=== PATIENT | male | born 1980 | race African-American/Black ===

== ENCOUNTER 2019-06-23 08:35 | Outpatient (CLI) | payer BC, OTHER ==
[~2019-06-23 08:35] MED LIST: EPINEPHrine 1 MG/ML AMP ONE; Gadobenate Dimeglumine 529 MG/1 ML (20ML VIAL) ONE; Iopamidol 300 61% 30 ML VIAL ONE; Lidocaine 1% PF 10 ML AMP ONE
--- NOTE | 2019-06-23 12:44 | MRI ---
MR ARTHROGRAM OF THE LEFT SHOULDER: INDICATION: History of left shoulder rotator cuff repair with left shoulder pain. COMPARISON: Prior MR of the left shoulder dated 01/04/2015. FINDINGS: Since the comparison examination there is been an interval rotator cuff repair. There is still a part ial-thickness undersurface tear involving the anterior infraspinatus at the footprint involving approximately 75% of the tendon thickness, best seen on image 14 of series 6. There is a full-thickne ss SLAP tear involving the posterior superior and posterior glenoid labrum. Glenohumeral articular surface is normal-appearing. Biceps tendon is located. Biceps anchor complex is intact. Hill-Sachs de formity is again noted. There is mild AC joint hypertrophy. IMPRESSION: 1. SLAP tear involving the posterior superior and posterior glenoid labrum extending from approximate ly the 10:00 position through the 9:00 position. 2. Partial thickness articular surface tear involving the anterior infraspinatus at the footprint inv olving approximately 75% of the tendon thickness. This tear is new from the comparison in 2014. Transcribed Date/Time: 06/23/2019 1:27 PM
[2019-06-23] MEDS ORDERED: Gadobenate Dimeglumine 529 MG/1 ML (20ML VIAL) ONE (16:00)
--- NOTE | 2019-06-23 16:35 | RAD ---
Arthrogram left shoulder: DATE: 06/23/2019 HISTORY: 38-year-old male with left shoulder pain TECHNIQUE: Signed informed consent obtained. Patient placed supine on fluoroscopy table. [employer] radiographic imag es of left shoulder obtained. Anterior skin of shoulder prepared and draped in usual sterile fashion. 25-gauge needle used to apply buffered lidocaine. 22-gauge spinal needle advanced from anter ior approach into the anterior superior aspect of the glenohumeral joint space. Total of 12 mL of normal saline solution containing iodinated contrast, gadolinium based contrast agent, lidocaine, and epinephrine, injected into the intracapsular space. Needle removed. Radiographic images obtained after injection. Patient tolerated procedure well. No complications. FINDINGS: [employer] images demonstrate small focal lucencies at the humeral head representing rotator cuff repair c hanges. Postinjection images demonstrate good distribution of contrast material in the intracapsular space. No high-grade bony DJD at glenohumeral joint. Mild DJD at AC joint. IMPRESSION: Successful left shoulder arthrogram. See separate report of MR arthrogram.
== END 2019-06-23 08:36 | disposition home or self-care (01) ==
LOC: RAD 08:35
PROVIDERS: ATTEND Orthopaedic Surgery
DX: Z47.89 Encounter for other orthopedic aftercare (principal); S43.432A Superior glenoid labrum lesion of left shoulder, initial encounter; M75.112 Incomplete rotator cuff tear or rupture of left shoulder, not specified as traumatic; Z98.890 Other specified postprocedural states
CPT/HCPCS: 23350; A9577; J0171; J2001; Q9967

== ENCOUNTER 2019-07-02 07:40 | Day surgery (SDC) | payer BC, OTHER ==
[2019-07-01 10:20] VITALS: BMI 43.9
[2019-07-02 09:01] LABS: #Basophils 0.1 thou/uL (0.0-0.2); #Eosinphils 0.2 thou/uL (0.0-0.7); #Lymphocytes 1.8 thou/uL (1.20-3.40); #Monocytes 0.6 thou/uL (0.11-0.59); #Neutrophils 3.6 thou/uL (1.40-6.50); %Basophils 1.1 % (0.0-1.0); %Eosinophils 3.2 % (0.0-10.0); %Lymphocytes 28.8 % (21.0-51.0); %Neutrophils 57.9 % (42.0-75.0); Hemoglobin 14.4 g/dL (14.0-18.0); Mean Corpuscular HGB CONC 32.7 g/dL (32.0-36.0); Mean Corpuscular Hemoglobin 28.2 pg (27.0-31.0); Mean Corpuscular Volume 86.2 fL (78.0-98.0); Mean Platelet Volume 8.4 fL (7.4-10.4); Platelet Count 229 thou/uL (130-400); RBC Distribution Width 12.8 % (11.5-14.5); Red Blood Cell (RBC) Count 5.11 mill/uL (4.70-6.10); White Blood Cell (WBC) Count 6.2 thou/uL (4.8-10.8)
[2019-07-02] MEDS ORDERED: Fentanyl 100 MCG/2 ML VIAL ONE ×3 (09:04→12:14)
[2019-07-02] MEDS ORDERED: Midazolam HCl 2 mg/2 ml Vial ONE (09:04)
[2019-07-02] MEDS ORDERED: Ropivacaine 0.2% 550 ML 550 ML NERVE BLCK SCH (09:23)
[2019-07-02] MEDS ORDERED: Ondansetron PF 4 MG/2 ML Vial IVP PRN (09:23)
[2019-07-02] MEDS ORDERED: Zolpidem Tartrate 5 MG TAB PO PRN (09:23)
[2019-07-02] MEDS ORDERED: Promethazine HCl 25 MG/ML VIAL IM PRN (09:23)
[2019-07-02] MEDS ORDERED: traMADol HCl 50 MG TAB PO PRN ×2 (09:23)
[2019-07-02] MEDS ORDERED: HYDROcodone/Acetaminophen 10/325 mg Tablet PO PRN ×2 (09:23)
[2019-07-02] MEDS ORDERED: Fentanyl 100 MCG/2 ML VIAL IV PRN (09:24)
[2019-07-02] MEDS ORDERED: Bupivacaine/Epinephrine 0.25% 30 ML VIAL ONE (09:57)
[2019-07-02] MEDS ORDERED: Ketorolac Tromethamine 30 MG/ML VIAL IVP SCH (12:00)
[2019-07-02] MEDS ORDERED: HYDROcodone/Acetaminophen 5/325 mg Tablet ONE (13:33)
--- NOTE | 2019-07-03 09:00 | OP ---
DATE OF PROCEDURE: 07/02/2019 PREOPERATIVE DIAGNOSIS: Left high-grade infraspinatus tear, 70% or greater. POSTOPERATIVE DIAGNOSIS: Left high-grade infraspinatus tear, 70% or greater. PROCEDURE PERFORMED: Arthroscopic left rotator cuff repair. ANESTHESIOLOGIST: Dr. Cooper. ANESTHESIA: The patient received a general intubation with interscalene block. ESTIMATED BLOOD LOSS: Less than 30 mL. TOURNIQUET TIME: None. IMPLANTS: Two 4.75 SwiveLocks. COMPLICATIONS: Slight prominence of tuberosity anchor. HISTORY OF PRESENT ILLNESS: Mr. Yhe is a 38-year-old male, who presents after a pop in his left shoulder, the patient had a previous rotator cuff repair in 2014. He had pain with overhead activities, pain continue so he desired surgical relief. He says it is interrupting his sleep. The tear is a component of the infraspinatus with a maintained muscle volume. I discussed the risks and benefits of arthroscopic evaluation of the rotator cuff repair with possible biceps tenodesis. I discussed risks and benefits of surgery to include pain, scar, bleeding, infection, damage to vital structures, decreased range of motion and strength, need for further surgeries, failure of implants and repair, loss of life or limb. The patient understood the risks and benefits of the procedure and elected to proceed. DESCRIPTION OF PROCEDURE: Time-out was performed designating the patient's left upper extremity as operative site based on site, consents, and marking. After time-out, the patient's left upper extremity was prepped and draped in sterile fashion. I placed my posterior working portal slightly superior and lateral to where the previous incision was, moved intra-articularly, the subscapularis was in place. There was some fraying of the infraspinatous had damaged cartilage posteriorly, but there was a frayed edge of the bursal side of infraspinatus that I found intra-articularly, which I tagged that was coming from anterior to posterior so it was a linear tag and it fell roughly where the soft spot would be within the cuff. I saw no other areas and pulled the biceps in place. The labrum was degenerated , but I could not find this, the biceps looked good throughout its course. No fraying, no fibrillations. It was not subluxable into the joint. I debrided some of the degenerative labrum, but did not perform a tenotomy. I moved subacromially, took down some of the bursa exposed, I found a soft spot, kind of near what would be the posterior footprint of this infraspinatus, fell into the defect. I cleaned up that and used a [place] blade to create a little bit larger hole for placement of my anchor. I used a 4.75 SwiveLocks, which I tapped, and placed my awl to pass the SwiveLock in position, had a nice firm fixation. I moved intra-articularly to be sure I was out of the joint surface. I looked intra-articularly I had a thread and a half width prominence. It was firmly fixed and I did not feel like it further move it, therefore I left it into position. We moved back subacromially. I tied four sutures. I then placed a double row with 4. 75 SwiveLock laterally to kind of the tear and tied down the cuff, felt like I had better apposition of the posterior to middle aspect of the cuff with this. I cut the final sutures, took final pictures, washed and closed. The patient will be in abduction pillow sling and will stay in the sling until I see him back in clinic in about 10 to 14 days with range of motion. The patient's preoperative function was not a great, I don't expect him to have perfect postoperative function after this. We will follow him in outpatient. He received [place] and discharged home. Job ID: [id number] [facility]
== END 2019-07-02 14:50 | disposition home or self-care (01) ==
LOC: SDC 07:40
PROVIDERS: ATTEND Orthopaedic Surgery
PROC: 0LQ24ZZ Repair Left Shoulder Tendon, Percutaneous Endoscopic Approach (ICD-10-PCS; principal; 2019-07-02)
PROC: 3E0T3BZ Introduction of Anesthetic Agent into Peripheral Nerves and Plexi, Percutaneous Approach (ICD-10-PCS; principal; 2019-07-02)
DX: M75.112 Incomplete rotator cuff tear or rupture of left shoulder, not specified as traumatic (principal); E78.5 Hyperlipidemia, unspecified; G89.18 Other acute postprocedural pain; Z79.1 Long term (current) use of non-steroidal anti-inflammatories (NSAID)
CPT/HCPCS: 85025; A4306; C1713; J0690; J2250; J2795; J3010